=== PATIENT | male | born 1965 | race Caucasian/White ===

== ENCOUNTER → 2020-06-14 16:12 | Outpatient (CLI) | payer OTHER, SELFPAY ==
[2020-06-14 18:01] LABS: Add Manual Diff / Slide Review NO; Basophils Absolute Auto 0 /uL (0-100); Basophils Percent Auto 0.2 % (0-2); Eosinophils Absolute Auto 100 /uL (0-450); Eosinophils Percent Auto 1.3 % (2-4); Hematocrit 45.2 % (41-53); Hemoglobin 15.4 g/dL (13.5-17.5); Lymphocytes Absolute Auto 2200 /uL (1100-4500); Lymphocytes Percent Auto 23.5 % (25-40); Mean Corpuscular HGB Conc 34.1 % (30-36); Mean Corpuscular Volume 90.8 fL (80-100); Monocytes Absolute Auto 900 /uL (0-900); Monocytes Percent Auto 9.6 % (3-14); Neutrophils Absolute Auto 6000 /uL (1500-7000); Neutrophils Percent Auto 65.4 % (50-75); Platelet Count 304 X10^3/uL (150-400); Red Blood Cell Count 4.98 X10^6/uL (4.5-5.9); Red Cell Distribution Width 13.5 % (11.6-14.8); White Blood Cell Count 9.2 X10^3/uL (4.5-11.0)
[2020-06-14 18:15] LABS: Hemoglobin A1C% w Est Avg Glu 5.6 % (4.0-6.0)
== END ==
PROVIDERS: PCP Internal Medicine; Referring Provider Orthopaedic Surgery Adult Reconstructive Orthopaedic Surgery; Visit Provider Orthopaedic Surgery Adult Reconstructive Orthopaedic Surgery
DX: Z01.812 Encounter for preprocedural laboratory examination (principal); Z01.818 Encounter for other preprocedural examination; R73.9 Hyperglycemia, unspecified
CPT/HCPCS: 36415; 83036; 85025; 93005; 93010

== ENCOUNTER → 2020-07-08 11:32 | Outpatient (CLI) | payer OTHER, SELFPAY ==
[2020-07-08 12:21] LABS: COVID19 -Nasal RAPID Negative (Negative)
== END ==
PROVIDERS: PCP Internal Medicine; Visit Provider Physician Assistant
DX: Z11.59 Encounter for screening for other viral diseases (principal)
CPT/HCPCS: 87635

== ENCOUNTER 2020-07-11 06:06 | Day surgery (SDC) | payer OTHER, SELFPAY ==
[2020-07-05 08:53] VITALS: BMI 25.7
[2020-07-11] VITALS (17 sets, daily range): BP systolic 119–137; BP diastolic 61–88; PULSE 73–105; RESP 12–20; TEMP 36.1–36.9; O2SAT 92–99; BMI 26.8
[2020-07-11] MEDS: CELECOXIB 200 MG CAPSULE PO (06:47)
[2020-07-11] MEDS: PREGABALIN 75 MG CAPSULE PO (06:47)
[2020-07-11] MEDS: ACETAMINOPHEN 325 MG TABLET 975 MG PO (06:47)
--- NOTE | 2020-07-11 07:36 | SUR.PREOP ---
SPOKE WITH DR. WRIGHT REGARDING PT UNKNOWN CHILDHOOD ALLERGY TO PCN AND CURRENT ORDER FOR ANCEF. PER DR. WRIGHT OK TO CONTINUE WITH CURRENT PLAN TO USE ANCEF. COMMUNICATED THIS WITH CIRCULATING RN.
--- NOTE | 2020-07-11 07:37 | PM.PREOP ---
Pre-operative Note COVID-19 COVID-19 status: Negative Result date/Date tested (Pos, Neg/Pending): 07/08/20 Interval Note History & Physical reviewed/Exam performed by Physician: Yes Changes to H&P: No H&P completed within 30 days and has changed as indicated here:: Plan for left knee open lysis of adhesions
[2020-07-11] MEDS: CEFAZOLIN 2 GM/100 ML FROZ.PIGGY IV ×3 (07:50→23:19)
--- NOTE | 2020-07-11 08:16 | SUR.OPER ---
Supine on padded OR bed, head on pillow, arms secured on padded arm boards at <90 degrees abduction, left leg on Dr. Bynum knee positioner, left leg is under control of surgeon, legs uncrossed, safety belt at thigh, tape over blanket over right lower leg.
[2020-07-11] MEDS: ROPIVACAINE 0.5% PF 20ML 60 ML, MORPHINE 4 MG, KETOROLAC 30 MG INJ (08:32)
[2020-07-11] MEDS: TRANEXAMIC ACID 1,000 MG VIAL 1000 MG IV ×2 (08:33→09:01)
[2020-07-11] MEDS: LACTATED RINGERS 1,000 ML 42 ML IV (08:37)
--- NOTE | 2020-07-11 10:13 | P.OP_ITS ---
Operative Date/Time/Diagnoses Date of procedure: 07/11/20 Time of procedure: 10:13 Pre-op diagnosis: arthrofibrosis s/p left TKA Post-op diagnosis: same Procedure & Clinicians Procedure: left knee open lysis of adhesions and polyethylene exchange Same procedure as scheduled: Yes Indications: Loss of ROM of the left knee after TKA. Has a history of tibial plateau fracture and post-traumatic arthritis. Surgeon: Hal Bynum Owner/Photographer: Brendon Morris Anesthesia Type: General Operative Notes Findings: Copious scar formation with extensor mechanism adhered down to the anterior femur. Excess cement within the intercondylar notch impinging on the superior pole of the polyethylene post. Closure Type: non-primary Specimen(s): other (2x tissue cultures) Prosthetic devices, grafts, tissues, transplants, or devices: Alexandra and nephew size 7 9 mm PS poly Estimated Blood Loss (mL): 200 Tourniquet time (min): 65 Procedure in detail: Patient was met in the preoperative holding area where the site and side of surgery were marked by . Informed consent had been reviewed and signed in clinic but was again reviewed in the preoperative area. Plan will be for a left knee open lysis of adhesion and polyethylene exchange. Risks include but are not limited to no improvement of range of motion, infection, damage to local structures such as vessels and nerves, delayed wound healing, need for future surgeries, DVT, PE, etc.. Patient demonstrates understanding of the risks and benefits of surgery and wishes to proceed. Patient was brought back in the operating room where he was transferred on the operating table induced under general anesthesia. The left thigh then had a nonsterile tourniquet placed in the left lower extremity then prepped and draped in normal sterile fashion. A surgical time-out performed verifying the site and side of surgery as well as the name of the patient. Preoperative range of motion was about 15? short of full extension to about 45? of flexion. The leg was elevated and it was exsanguinated using Esmarch. The tourniquet was then inflated 25 mm of Hg. His old surgical scar was marked out wheeze the majority of his old surgical scar but not the entirety of it a 10. Blade was used to incise the skin followed by a new 10. Blade to raise a large medial flap to gain access for a medial parapatellar arthrotomy. His previous surgical scar is lateral based. A medial parapatellar arthrotomy was performed and thick scar was encountered. The subcutaneous tissue was then freed up from the superficial surface of the extensor mechanism we then turned our attention to the distal extent of the incision and performed a medial peel. A limited patellar peel was then also performed. The medial and lateral gutters were then cleaned of copious scar and the extensor mechanism was elevated off the anterior femur. We then turned attention to the patella and removed excess bony fragments as well as copious scar. Then turned our attention to the intercondylar notch were several tissue samples were taken. This point we also identified excess cement spillage into the trick condylar notch impinging on the superior pole of the polyethylene. The polyethylene was then removed and excess cement was removed from the intercondylar notch as well as scar from the intercondylar notch as well as the posterior aspect of the knee sirs performed both medially and laterally. We made several rounds of her about the knee taking all excess scar in freeing up tissue planes. We then copiously irrigated the knee with pulse lavage followed by placement of a new size 7, 9 mm thick PS poly we then confirmed that both the medial and lateral dove tails were engaged and the polyethylene was fully seated. Intraoperative range of motion was improved to 3? short of full extension to 95? of flexion. Betadine solution was then placed into the wound allowed to sit for 5 minutes. This dilute Betadine solution was then irrigated with copious normal saline. The tourniquet was then let down. Hemostasis was achieved using electrocautery. The wound was then irrigated again with copious normal saline and the medial parapatellar arthrotomy was closed using 1. Vicryl in interrupted fashion. Followed by a running Quill suture followed by 2-0 interrupted Vicryl in the subcutaneous layer followed by michael on skin and a john dressing. Complications: none Post-operative Condition: stable Disposition: PACU Plan for aftercare: Weightbearing as tolerated left lower extremity, 24 hours of postop antibiotics, aspirin 81 mg b.i.d. for 6 weeks for DVT prophylaxis, early range of motion possible CPM
[2020-07-11] MEDS: fentaNYL 100 MCG/2 ML INJ IV ×4 (10:25→10:50)
[2020-07-11] MEDS: HYDROMORPHONE 2 MG INJ IV ×2 (10:40→10:49)
[2020-07-11] MEDS: OXYCODONE/ACETAMINOPHEN 5/325 TABLET 1 TAB PO (10:50)
[2020-07-11] MEDS: LACTATED RINGERS 1,000 ML 100 ML IV ×2 (11:45→23:19)
--- NOTE | 2020-07-11 11:55 | PC.NURSE ---
Addendum entered by Pinky Mathis R.N. 07/11/20 14:52: Patient up in chair after working with physical therapy. He is a one person assist. He voided in the urinal and vss. Given tylenol and ibuprofen for discomfort. Original Note: Assess- Patient is a&ox3, he is a bit sleepy, sats drop to 89% when he is groggy but easily come back up to 94%. He has a john dressing to his l.knee with an deyvi wrap on his leg. CMS and PPx2. He denies pain and will be due for more pain medication at 1330. is at bedside. Patient has iv LR infusing at 100cc/hr. He is drinking coffee and denies any nausea.
[2020-07-11] MEDS: ACETAMINOPHEN 325 MG TABLET 650 MG PO ×2 (14:07→21:01)
[2020-07-11] MEDS: IBUPROFEN 400 MG TABLET PO ×3 (14:07→21:01)
[2020-07-11] MEDS: ONDANSETRON 4 MG/2 ML INJ IV (15:25)
--- NOTE | 2020-07-11 15:45 | PT.IIE ---
Current Diagnoses Ankylosis, left knee (07/11/20) Surgery Performed Operation Date: 07/11/20 07:45 Actual Procedures p Open lysis of adhesions of knee joint after total knee replacement and poly exchange(Left) - Hal Bynum MD Surgical History (Last Updated 07/05/20 @ 09:09 by Isabelle Vanessa RN) History of arthroplasty of left knee (2015) History of surgery Hx of eye surgery Hx of hernia repair (~2017) Hx of knee surgery (2014) Hx of tonsillectomy Medical History (Last Updated 07/05/20 @ 09:09 by Isabelle Vanessa RN) HTN (hypertension) Osteoarthritis Physical Therapy Inpatient Evaluation/Re-Eval M1 PT/OT-IP Prior Functional Status Start: 07/11/20 12:59 Freq: NEEDED Status: Active Protocol: Document 07/11/20 14:57 DE (Rec: 07/11/20 15:38 DE [id number]) Medical Review Prior Functional Status Medical History Reviewed Yes Diet/Fluid Consistency Regular Communication WNL. No deficits noted. Able to make needs known. Mobility and Gait IND for all mobility and amb without AD or limitations at baseline. Activities of Daily Living and IADL's IND for all ADLs and IADLs including driving at baseline. Prior Functional Level (Other details) Pt had difficulty with sitting for a long time. Pt had traumatic L tibial plateau fracture 5 years ago and eventual TKA and SOHAM in 2016. Pt progressed poorly with knee ROM. Social History Household Members spouse Living Arrangements House Number of Floors (Floors) One Floor Number of Stairs To Enter/Railing? 4 SARAH with B railing that can be reached at the same time. 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 Spouse works part-time and is able to work her schedule around. M2 PT-IP Current Condition Start: 07/11/20 12:59 Freq: NEEDED Status: Active Protocol: Document 07/11/20 14:57 DE (Rec: 07/11/20 15:38 DE [id number]) Physical Therapy Current Condition Current Condition Evaluation Date 07/11/20 Treatment Diagnosis L knee open lysis of adhesions ; Difficulty with walking. Onset Date 07/11/20 Weight Bearing Status Weight Bearing Status Weight Bear as Tolerated M3 PT-IP Subjective Start: 07/11/20 12:59 Freq: NEEDED Status: Active Protocol: Document 07/11/20 14:57 DE (Rec: 07/11/20 15:38 DE [id number]) Subjective Physical Therapy Visit Type Type Initial Evaluation Visit Start Time 14:03 Visit Stop Time 14:44 Total Visit Minutes 41 Notes SPT Jagdeep led session under direct supervision of PT Joy throughout the entire session. Number of NEWSPAPER MANAGER Visits 0 Physical Therapy Visit Comments Patient Comments Pt is agreeable to do PT. M4 PT-IP Mobility and Gait Start: 07/11/20 12:59 Freq: NEEDED Status: Active Protocol: Document 07/11/20 14:57 DE (Rec: 07/11/20 15:38 DE [id number]) PT-Bed Mobility Assessment Supine to Sit Supine to Sit Standby Assistance Scooting Scooting to Edge of Bed Standby Assistance PT-Transfer Assessment Sit to and From Stand Sit to and from Stand Contact Guard Assistance,Use of Upper Extremities Equipment Transfer Assistive Device None,Gait Belt Orthotic/Prosthetic Devices or Brace: No Transfers Transfer Destination Bed,Chair Transfer Technique Stand Step Pivot Transfer Ability Level of Assist Contact Guard Assistance,Use of Upper Extremities Comments Mobility Comments Pt was lying supine in bed upon arrival. Pt performed supine L quad sets and L heel slides. Pt demonstrated lack of L knee flexion and extension. Pt completed supine to sit at L EOB with SBA. Pt then performed sit to stand with CGA and use of BUE in staggered stance with more WB through his RLE. After standing up completely, pt grabbed B axillary crutches. Pt requested to use the bathroom and amb ~15 ft to the bathroom and voided in the urinal with CGA and B axillary crutches. After ~5 min, pt amb ~15 min back to the bed and sat down to take vitals. SHOE CLEANER came in and took the vitals. Pt then stood up again and amb ~400 ft total around foot of bed, out in the hallway, and back to the room with CGA and B axillary crutches. Pt demonstrated 2- point step through gait pattern advancing L foot with the crutches. Pt was able to tolerate WB well on his LLE throughout the gait but had lack of L knee extension and demonstrated slight L circumduction. Pt returned to the room and sat down on the chair with CGA and B axillary crutches. Pt was reclined in the chair. Call light placed within reach. Pt c/o mild lightheadedness as PT and SPT were heading out. Communicated with RN and SHOE CLEANER about it. Gait Assessment Gait Gait Assistance Required: Contact Guard Assist Distance (Feet) 400 Able to Maintain Weight Bearing Status Yes During Gait Assistive Devices Assistive Device Gait Belt,Axillary Crutches Orthotic/Prosthetic Devices or Brace: No Gait Deviations General Gait Pattern Antalgic,Decreased Stride Length,Decreased Feet Clearance Factors Limiting Gait Function Factors Limiting Gait Function Decreased Activity Tolerance, Decreased Strength,Limited Range of Motion,Pain Comments Gait Comments See mobility comments. Stair Climbing Assessment Comments Stair Climbing Comments Not assessed. PT-Balance Assessment Sitting Balance and Reactions Static Sitting Balance Ability Normal Dynamic Sitting Balance Ability Normal Standing Balance and Reactions Static Standing Balance Ability Good Dynamic Standing Balance Ability Good Device Used B axillary crutches M5 PT-IP Objective Assessments Start: 07/11/20 12:59 Freq: NEEDED Status: Active Protocol: Document 07/11/20 14:57 DE (Rec: 07/11/20 15:38 DE [id number]) Orientation Orientation/Cognition Level of Alertness Alert Orientation Name,Age,Birthday,Month,Date, Year,Day of Week,Place, Situation Language Function Ability No Deficits Noted Safety Awareness Understands Safety Issues Memory Description No Deficits Noted Gross Range of Motion Lower Extremity ROM Assessment Left Impaired Strength Lower Extremity Strength Assessment Left Impaired Coordination Assessment Gross Coordination Gross Coordination WNL Sensation Assessment Sensation Gross Sensation Left LE Impaired Light Touch Impaired Comments Sensation Comments Pt reports numbness in the medial aspect of L thigh, likely from anesthesia. Muscle Tone Muscle Tone WNL Yes M6 PT-IP Treatment Start: 07/11/20 12:59 Freq: NEEDED Status: Active Protocol: Document 07/11/20 14:57 DE (Rec: 07/11/20 15:38 DE [id number]) Physical Therapy Treatment Exercises Exercises Gluteal Sets,Quad Sets,Heel Slides Education Education Provided Weight Bearing Status,Safety Other Treatments Other Treatment Performed Pt was educated on WB status, safety, and role of PT. M7 PT-IP Assessment and Plan Start: 07/11/20 12:59 Freq: NEEDED Status: Active Protocol: Document 07/11/20 14:57 DE (Rec: 07/11/20 15:38 DE [id number]) PT Summary Assessment and Plan Potential Rehabilitation Potential Excellent Status of Condition at Evaluation Stable Summary Impairments Pain,ROM,Strength,Balance, Sensation,Bed Mobility, Transfers,Gait,Activity Tolerance Assessment Summary Ced is a 55 yo male s/p L knee open lysis of adhesions and polyethylene exchange. PMH includes L tibial plateau fracture and L TKA. At baseline, pt was IND for all mobility, amb, and ADLs including driving. On evaluation, pt requires SBA- CGA for all mobility, transfers, and amb with use of B axillary crutches. Pt will need to perform 4 steps with B railing before d/c. PT anticipates pt will d/c home with assistance and B axillary crutches once medically cleared. Pt will benefit from outpatient PT to improve his L knee ROM. Goals Bed Mobility Goal Independent Transfer Goal Independent,Crutches Gait Goal Independent,Crutches Gait Distance 400 Other Goals Pt will perform 4 steps with B railing SBA. Days to Meet Goals 3 Frequency of Treatment Frequency Of Treatment Twice a Day Treatment Plan Physical Therapy Treatment Plan Bed Mobility Training,Transfer Training,Gait Training, Therapeutic Exercise,Balance Retraining,Post Op Education, Discharge Planning,Hot or Cold Pack,Neuromuscular Re-ed Other Recommendations and Next Treatment 4 steps with B railing Focus Recommendations To Nursing Amount of Assist Needed 1 Person Assist Discharge Recommendations PT Discharge Recommendations Home with Assistance, Outpatient PT Transportation Needs at Discharge Private Vehicle Treatment was provided by Jagdeep Durham, SPT and supervised by Joy Smith, PT. I personally reviewed this note and agree with its contents.
[2020-07-11 20:05] LABS: Add Manual Diff / Slide Review NO; Basophils Absolute Auto 0 /uL (0-100); Basophils Percent Auto 0.1 % (0-2); Eosinophils Absolute Auto 0 /uL (0-450); Hematocrit 38.8 % (41-53); Hemoglobin 12.9 g/dL (13.5-17.5); Lymphocytes Absolute Auto 500 /uL (1100-4500); Lymphocytes Percent Auto 3.6 % (25-40); Mean Corpuscular HGB Conc 33.3 % (30-36); Mean Corpuscular Hemoglobin 30.1 PG (26-34); Mean Corpuscular Volume 90.3 fL (80-100); Monocytes Absolute Auto 700 /uL (0-900); Monocytes Percent Auto 5.1 % (3-14); Neutrophils Absolute Auto 12900 /uL (1500-7000); Neutrophils Percent Auto 91.2 % (50-75); Platelet Count 256 X10^3/uL (150-400); Red Cell Distribution Width 13.1 % (11.6-14.8); White Blood Cell Count 14.1 X10^3/uL (4.5-11.0)
[2020-07-11] MEDS: ASPIRIN EC 81 MG TABLET PO (21:01)
[2020-07-11] MEDS: DOCUSATE 100 MG CAPSULE PO (21:02)
--- NOTE | 2020-07-11 23:33 | PC.NURSE ---
VSS. Pain /, PO scheduled tylenol and ibuprofen provide relief of symptoms. No bowel movement yet. Good appetite, ate 100% of dinner. Full sensation to bilateral lower extremities.
[2020-07-12] MEDS: IBUPROFEN 400 MG TABLET PO ×4 (01:35→13:51)
[2020-07-12 05:00] VITALS: BP 139/83; PULSE 90; RESP 16; TEMP 36.4; O2SAT 98
[2020-07-12 05:38] LABS: Hematocrit 37.9 % (41-53); Hemoglobin 12.7 g/dL (13.5-17.5)
[2020-07-12 08:04] VITALS: BP 136/79; PULSE 83; RESP 16; TEMP 36.8; O2SAT 97
[2020-07-12] MEDS: ACETAMINOPHEN 325 MG TABLET 650 MG PO ×2 (09:01→13:51)
[2020-07-12] MEDS: ASPIRIN EC 81 MG TABLET PO (09:01)
[2020-07-12] MEDS: lisinopriL 20 MG TABLET PO (09:01)
[2020-07-12] MEDS: DOCUSATE 100 MG CAPSULE PO (09:01)
--- NOTE | 2020-07-12 10:06 | PC.NURSE ---
Assess- Patient is doing well this morning and has been cleared by physical therapy to discharge home. He does not have an order to go home from Ortho yet. He has a Trinity drain to knee that is cdi, with motor device blinking green. CMS wnl, ppx2. He is a sba to get up, tried to have a bowel movement but unsuccessful.
--- NOTE | 2020-07-12 11:04 | P.DS_ITS ---
History of Present Illness History of Present Illness Date Patient Seen: 07/12/20 Time Patient Seen: 11:04 Chief complaint: Left Total Knee Arthroplasty *OPB* Narrative: Patient's pain is [id number]. Denies fever or chills. No nausea or vomiting. Discharge Providers Provider Discharge Date: 07/12/20 Primary care physician: Lui Burt MD Consults: 07/11/20 06:00 Consult to Anesthesiology Routine Comment: Consulting Provider: Anesthesiologist Reason for consultation: Regional block for post operative pain control 07/11/20 11:34 Consult to Discharge Planning Routine Comment: Consult to Physical Therapy Evaluate & Treat Comment: Physician Instructions: postop TKA protocol Consult to Respiratory Therapy Evaluate & Treat Comment: Physician Instructions: Evaluate and treat Discharge provider: Brendon Morris PA-C Summary Hospital Course Discharge Diagnosis: arthrofibrosis s/p left TKA Hospital Course: [address] [id number] Note Patient: Ced Michaud AMR#: [id number]: 1965Acct:[id number]/Sex: 55 / M Date of Service: 07/11/20Provider: Hal Bynum MD Operative Date/Time/Diagnoses Date of procedure: 07/11/20 Time of procedure: 10:13 Pre-op diagnosis: arthrofibrosis s/p left TKA Post-op diagnosis: same Procedure & Clinicians Procedure: left knee open lysis of adhesions and polyethylene exchange Same procedure as scheduled: Yes Indications: Loss of ROM of the left knee after TKA. Has a history of tibial plateau fracture and post-traumatic arthritis. Surgeon: Hal Bynum Registered Dental Assistant: Brendon Morris Anesthesia Type: General Operative Notes Findings: Copious scar formation with extensor mechanism adhered down to the anterior femur. Excess cement within the intercondylar notch impinging on the superior pole of the polyethylene post. Closure Type: non-primary Specimen(s): other (2x tissue cultures) Prosthetic devices, grafts, tissues, transplants, or devices: Alexandra and nephew size 7 9 mm PS poly Estimated Blood Loss (mL): 200 Tourniquet time (min): 65 Exam Vital Signs (past 8 hours): - 07/12/20 05:00 07/12/20 08:04 Temperature 97.6 F 98.3 F Pulse Rate 90 83 Respiratory Rate 16 16 Blood Pressure 139/83 136/79 Pulse Oximetry 98 97 Oxygen Delivery Method Room Air Oxygen Flow Rate 0 Narrative Exam Narrative: 55-year-old male resting comfortably in bed in no apparent distress. Left knee dressing is clean, dry and intact. Motor functions intact distal left lower extremity. Sensation grossly intact to light touch distal left lower extremity. Objective Labs Result Diagrams: 07/12/20 05:14 Labs: Laboratory Results - last 24 hr 07/11/20 07/12/20 19:50 05:14 WBC 14.1 H RBC 4.30 L Hgb 12.9 L 12.7 L Hct 38.8 L 37.9 L MCV 90.3 MCH 30.1 MCHC 33.3 RDW 13.1 Plt Count 256 Neut % (Auto) 91.2 H Lymph % (Auto) 3.6 L [place] % (Auto) 5.1 Eos % (Auto) 0.0 L Baso % (Auto) 0.1 Neut # (Auto) 41724 H Lymph # (Auto) 500 L [place] # (Auto) 700 Eos # (Auto) 0 Baso # (Auto) 0 Discharge Assessment & Plan Assessment and Plan Assessment: Patient progressing as expected postop day 1 status post left knee open lysis of adhesions and polyethylene exchange Plan of Treatment: Discharge home today in stable condition. Weightbearing as tolerated left lower extremity. Aspirin 81 mg b.i.d. for 6 weeks. Early range of motion. Discharge Plan Discharge Plan Patient Disposition: Home Discharge orders & Medications Discharge Orders: Discharge (Order); Ordered 07/12/20 Ordered By: Brendon Morris Prescriptions: New acetaminophen 325 mg Tablet 650 mg PO TID Qty: 60 RF: 0 aspirin 81 mg Tablet,Delayed Release (Dr/Ec) 81 mg PO BID Qty: 60 RF: 0 ibuprofen 400 mg Tablet 400 mg PO Q4HR Qty: 60 RF: 0 ondansetron 4 mg Tablet,Disintegrating 4 mg PO Q4HR PRN (Reason: Nausea) Qty: 30 RF: 0 oxycodone 10 mg Tablet 10 mg PO Q3HR PRN (Reason: Pain, Moderate (4-6)) Qty: 30 RF: 0 Continued lisinopril 20 mg Tablet 20 mg PO DAILY RF: 0 flunisolide 25 mcg (0.025 %) Nichols,Non-Aerosol 1 spray INTRANASAL BEDTIME RF: 0 Discontinued naproxen sodium [Aleve] 220 mg Capsule 220 mg PO QD-BID PRN (Reason: Pain) RF: 0 Follow up/Referrals: Lui Burt MD [Primary Care Provider] - Hal Bynum MD [Physician] - (2 weeks) Diet/Activity/Treatments Diet: Diet as Tolerated Activity: WBAT Skin/Wound/Dressing Care Report to your healthcare provider any signs of infection, such as:: chills, fever, increased pain, unusual drainage and unusual redness Dressing: keep clean and dry Visit Report/Discharge Packet Instructions: DI for Knee Replacement Stand Alone Forms: Surgery Discharge Discharge Data Primary Care Provider: Lui Burt Attending Provider: Hal Bynum Quality VTE Deep Vein Thrombosis/Pulmonary Embolism Present on Admission: No
--- NOTE | 2020-07-12 11:05 | PT.IPTN ---
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 Onset Date 07/11/20 Weight Bearing Status Weight Bearing Status Weight Bear as Tolerated M3 PT-IP Subjective Start: 07/11/20 12:59 Freq: NEEDED Status: Active Protocol: Document 07/12/20 10:18 DE (Rec: 07/12/20 10:43 DE [id number]) Subjective Physical Therapy Visit Type Type Treatment Note Visit Start Time 09:05 Visit Stop Time 09:23 Total Visit Minutes 18 Notes SPT Jagdeep led session under direct supervision of PT Dennis throughout the entire session. Number of IMCU NURSE Visits 0 Physical Therapy Visit Comments Patient Comments Pt is agreeable to do PT. M4 PT-IP Mobility and Gait Start: 07/11/20 12:59 Freq: NEEDED Status: Active Protocol: Document 07/12/20 10:18 DE (Rec: 07/12/20 10:43 DE [id number]) PT-Bed Mobility Assessment Supine to Sit Supine to Sit Standby Assistance Scooting Scooting to Edge of Bed Standby Assistance PT-Transfer Assessment Sit to and From Stand Sit to and from Stand Standby Assistance,Use of Upper Extremities Equipment Transfer Assistive Device None,Gait Belt Orthotic/Prosthetic Devices or Brace: No Transfers Transfer Destination Chair Transfer Technique Stand Step Pivot Transfer Ability Level of Assist Standby Assistance,Use of Upper Extremities Comments Mobility Comments Pt was lying supine with elevated HOB upon arrival. Pt completed supine to sit at L EOB with SBA and elevated HOB. Pt then performed sit to stand with SBA and use of BUE. After standing up completely, pt grabbed B axillary crutches. Pt then amb 400 ft out to the hallway, to the stairs, and back to the room with SBA and B axillary crutches. For the most part, pt demonstrated 2 point gait pattern with his L foot advancing with the crutches, but sometimes his gait pattern was inconsistent. Pt did not have any unsteadiness or LOB during amb. Pt then performed stair climbing up and down 3 steps x2 with CGA. The first time, pt performed with B axillary crutches and demonstrated step-to pattern. For the second time, pt performed with B railing and was able to perform step-over pattern for ascending. Pt attempted to perform step-over for descending as well but was unsuccessful and used step -to pattern. Pt amb back to the room with SBA and B axillary crutches and voided in the urinal while standing next to bed. After voiding, pt sat down on the chair with SBA and use of BUE. Pt performed seated heel slides on chair. Call light placed within reach. Pt was advised to call the nurse when he wants to get up and walk around. Gait Assessment Gait Gait Assistance Required: Standby Assistance Distance (Feet) 400 Able to Maintain Weight Bearing Status Yes During Gait Assistive Devices Assistive Device Gait Belt,Axillary Crutches Orthotic/Prosthetic Devices or Brace: No Gait Deviations General Gait Pattern Antalgic,Decreased Stride Length,Decreased Feet Clearance Factors Limiting Gait Function Factors Limiting Gait Function Decreased Activity Tolerance, Decreased Strength,Limited Range of Motion,Pain Comments Gait Comments See mobility comments. Stair Climbing Assessment Evaluation Level of Assist On Stairs Contact Guard Assistance Devices Stair Climbing Assistive Devices Axillary Crutches,Left Railing ,Right Railing Technique/Endurance Stair Climbing Direction Ascend and Descend Number of Steps Climbed 3 Stair Climbing Set # Repetitions (reps) 2 Comments Stair Climbing Comments See mobility comments. PT-Balance Assessment Sitting Balance and Reactions Static Sitting Balance Ability Normal Dynamic Sitting Balance Ability Normal Standing Balance and Reactions Static Standing Balance Ability Good Dynamic Standing Balance Ability Good Device Used B axillary crutches M5 PT-IP Objective Assessments Start: 07/11/20 12:59 Freq: NEEDED Status: Active Protocol: Document 07/11/20 14:57 DE (Rec: 07/11/20 15:38 DE [id number]) Orientation Orientation/Cognition Level of Alertness Alert Orientation Name,Age,Birthday,Month,Date, Year,Day of Week,Place, Situation Language Function Ability No Deficits Noted Safety Awareness Understands Safety Issues Memory Description No Deficits Noted Gross Range of Motion Lower Extremity ROM Assessment Left Impaired Strength Lower Extremity Strength Assessment Left Impaired Coordination Assessment Gross Coordination Gross Coordination WNL Sensation Assessment Sensation Gross Sensation Left LE Impaired Light Touch Impaired Comments Sensation Comments Pt reports numbness in the medial aspect of L thigh, likely from anesthesia. Muscle Tone Muscle Tone WNL Yes M6 PT-IP Treatment Start: 07/11/20 12:59 Freq: NEEDED Status: Active Protocol: Document 07/12/20 10:18 DE (Rec: 07/12/20 10:43 DE [id number]) Physical Therapy Treatment Exercises Exercises Gluteal Sets,Quad Sets,Heel Slides Education Education Provided Weight Bearing Status,Safety Other Treatments Other Treatment Performed Pt was educated on WB status, safety, and role of PT. M7 PT-IP Assessment and Plan Start: 07/11/20 12:59 Freq: NEEDED Status: Active Protocol: Document 07/12/20 10:18 DE (Rec: 07/12/20 10:43 DE [id number]) PT Summary Assessment and Plan Potential Rehabilitation Potential Excellent Status of Condition at Evaluation Stable Summary Impairments Pain,ROM,Strength,Balance, Sensation,Bed Mobility, Transfers,Gait,Activity Tolerance Assessment Summary Pt improved level of assist from CGA to SBA for all mobility, transfers, and amb. Pt required CGA for stair climbing. Pt performed 3 steps x1 with B axillary crutches and 3 steps x1 with B railing. Pt was able to do step-over pattern for ascending but not for descending. Pt is safe for d/c. PT anticipates pt will d /c home with assistance and B axillary crutches once medically cleared. Frequency of Treatment Frequency Of Treatment Discharge Recommendations To Nursing Amount of Assist Needed 1 Person Assist Discharge Recommendations PT Discharge Recommendations Home with Assistance, Outpatient PT Transportation Needs at Discharge Private Vehicle Treatment was provided by Jagdeep Durham, SPT and supervised by Francisca Agarwal, PT. I personally reviewed this note and agree with its contents.
[2020-07-12 11:34] VITALS: BP 130/76; PULSE 80; RESP 17; TEMP 36.6; O2SAT 97
--- NOTE | 2020-07-12 11:53 | CM.IDA ---
Initial DCP Assessment Note Patient is a 55 yo male, resident of [place]. Patient is POd#1 from left knee surgery w/ Dr Bynum PCP: Rich Burt Payer: Emeka Met w/patient, introduced role. Patient is indp and active at baseline, works, states this isn't my first rodeo (knee surgery) and feels confident about his return home w/spouse to assist as needed. Patient denies needs from this [employer], DC expected later today pending PT clearance. RAINA Mcfarland Discharge Planning/Care Management CM Discharge Assessment Start: 07/12/20 11:51 Freq: Status: Active Protocol: Document 07/12/20 11:52 JO (Rec: 07/12/20 11:53 JO [id number]) Discharge Planning Assessment Assigned [employer] RAINA Whitaker DPOA/Assigned Designee Name Tracy Mccrary, Contact Information [phone] Advance Directives? No History Provided By Patient Prior Living Arrangements House Household Members spouse Type of transporation used prior to Drives own vehicle admit Independent with ADL's Yes Is patient alert and oriented? Yes Barriers to Discharge No Discharge Plan Home Transportation Arrangement Family Referrals Initiated None needed
== END 2020-07-12 14:00 | disposition home or self-care (01) ==
LOC: OR 06:06 → AC 06:06
PROVIDERS: PCP Internal Medicine; Referring Provider Internal Medicine; Visit Provider Orthopaedic Surgery Adult Reconstructive Orthopaedic Surgery
PROC: 0SRD0JZ Replacement of Left Knee Joint with Synthetic Substitute, Open Approach (ICD-10-PCS; CPT 27447; principal; 2020-07-11 07:45)
DX: M24.662 Ankylosis, left knee (principal); T84.89XA Other specified complication of internal orthopedic prosthetic devices, implants and grafts, initial encounter; Z96.652 Presence of left artificial knee joint
CPT/HCPCS: 27486; 36415; 85014; 85018; 85025; 87070; 87075; 87205; 97116; 97161; C1776; J0690; J1100; J1170; J1885; J2270; J2405; J2704; J2795; J3010